=== PATIENT | female | born 1960 | race American Indian/Alaskan Native ===

== ENCOUNTER 2018-02-16 13:23 | Emergency (ER) | payer SELFPAY ==
[2018-02-16 13:29] VITALS: BP 167/94
[2018-02-16] MEDS ORDERED: MOTRIN PO ONE (14:16)
[2018-02-16] MEDS ORDERED: ZOFRAN ODT PO ONE (14:29)
--- NOTE | 2018-02-16 14:30 | Emergency Department Report ---
ED Head Trauma HPI - General Chief complaint: Head Injury Stated complaint: NECK/BACK PAIN Time Seen by Provider: 02/16/18 14:16 Source: patient Mode of arrival: Wheelchair Limitations: No Limitations - History of Present Illness Initial comments: This is a 58-year-old female nontoxic, well nourished in appearance, no acute signs of distress presents to the ED with c/o of acute headache and neck pain. Patient describes headache as diffuse with level of 3 out of 10. Patient denies thunderclap headache. Patient stated that she has nausea from pain. Patient denies any radiation of pain. Patient stated that she was at [employer] and trying to grab something from the top self and 2 boxes fell on her neck/ head area. Patient stated became dizzy but denies any loss of consciousness. Patient denies any visual changes. Patient denies worse headache. Patient denies any numbness, tingling, fever, chills, vomiting, chest pain, shortness of breath, stiff neck. Patient denies any radiation of pain. Patient stated allergies to PCN. PMH includes HTN. MD Complaint: head injury, other (neck pain) -: This afternoon Location: occipital Loss of Consciousness: no Previous [facility] Radiation: none Severity: mild Severity scale (0 -10): 8 Quality: aching Consistency: constant Provoking factors: none known Other Injuries: none Associated Symptoms: denies other symptoms. denies: confusion, amnesia, repetitive questioning, vision changes, nausea, vomiting, vertigo, syncope, numbness, weakness, tingling, neck pain - Related Data Home Medications Medication Instructions Recorded Confirmed Last Taken Hydrochlorothiazide [HCTZ] 25 mg PO QDAY 03/20/13 03/20/13 03/20/13 08:00 Previous Rx's Medication Instructions Recorded Last Taken Type Hydrocortisone/Pramoxine 10 gm RC BID 10 Days foam 03/25/13 Unknown Rx [Proctofoam-Hc 1%-1% Foam] Cyclobenzaprine [Flexeril] 10 mg PO QHS PRN #10 tablet 02/16/18 Unknown Rx Ibuprofen [Motrin] 600 mg PO Q8H PRN #30 tablet 02/16/18 Unknown Rx Allergies/Adverse reactions: Allergies Allergy/AdvReac Type Severity Reaction Status Date / Time Penicillins Allergy Anaphylaxis Verified 03/20/13 10:48 ED Review of Systems ROS: Stated complaint: NECK/BACK PAIN Other details as noted in HPI Constitutional: denies: chills, fever Eyes: denies: eye pain, eye discharge, vision change ENT: denies: ear pain, throat pain Respiratory: denies: cough, shortness of breath, wheezing Cardiovascular: denies: chest pain, palpitations Endocrine: no symptoms reported Gastrointestinal: denies: abdominal pain, nausea, diarrhea Genitourinary: denies: urgency, dysuria, discharge Musculoskeletal: back pain (neck). denies: joint swelling, arthralgia Skin: denies: rash, lesions Neurological: headache. denies: weakness, paresthesias Psychiatric: denies: anxiety, depression Hematological/Lymphatic: denies: easy bleeding, easy bruising ED Past Medical Hx - Past Medical History Hx Hypertension: Yes Additional medical history: carpal tunnel-no surgery, lymphoma ("its regressing out of my body now"--never received any treatment for the lymphoma. - Surgical History Past Surgical History?: Yes Additional Surgical History: - Social History Smoking Status: Never Smoker Substance Use Type: None - Medications Home Medications: Home Medications Medication Instructions Recorded Confirmed Last Taken Type Hydrochlorothiazide [HCTZ] 25 mg PO QDAY 03/20/13 03/20/13 03/20/13 08:00 History Hydrocortisone/Pramoxine 10 gm RC BID 10 Days foam 03/25/13 Unknown Rx [Proctofoam-Hc 1%-1% Foam] Cyclobenzaprine [Flexeril] 10 mg PO QHS PRN #10 tablet 02/16/18 Unknown Rx Ibuprofen [Motrin] 600 mg PO Q8H PRN #30 tablet 02/16/18 Unknown Rx ED Physical Exam - General Limitations: No Limitations General appearance: alert, in no apparent distress - Head Head exam: Present: atraumatic, normocephalic - Eye Eye exam: Present: normal appearance, PERRL, EOMI Pupils: Present: normal accommodation - ENT ENT exam: Present: normal exam, mucous membranes moist - Neck Neck exam: Present: normal inspection, full ROM. Absent: tenderness, meningismus, lymphadenopathy - Respiratory Respiratory exam: Present: normal lung sounds bilaterally. Absent: respiratory distress, wheezes, rales, rhonchi, stridor, chest wall tenderness, accessory muscle use, decreased breath sounds, prolonged expiratory - Cardiovascular Cardiovascular Exam: Present: regular rate, normal rhythm, normal heart sounds. Absent: bradycardia, tachycardia, irregular rhythm, systolic murmur, diastolic murmur, rubs, gallop - GI/Abdominal GI/Abdominal exam: Present: soft, normal bowel sounds. Absent: distended, tenderness, guarding, rebound, rigid, diminished bowel sounds - Rectal Rectal exam: Present: deferred - Extremities Exam Extremities exam: Present: normal inspection, full ROM, normal capillary refill. Absent: tenderness - Back Exam Back exam: Present: normal inspection, full ROM, paraspinal tenderness ( cervical paraspinal). Absent: tenderness, CVA tenderness (R), CVA tenderness (L ), muscle spasm, vertebral tenderness, rash noted - Expanded Back Exam Expanded Back exam: Absent: saddle anesthesia Back exam: Negative Straight Leg Raising: Left, Right - Neurological Exam Neurological exam: Present: alert, oriented X3, CN II-XII intact, normal gait - Expanded Neurological Exam Expanded Patient oriented to: Present: person, place, time Cranial nerves: EOM's Intact: Normal, Gag Reflex: Normal, Facial Sensation: Normal Cerebellar function: Finger to Nose: Normal Upper motor neuron: Pronator Drift: Normal, Sensory Extinction: Normal Sensory exam: Upper Extremity Light Touch: Normal, Upper Extremity Pin Prick: Normal, Upper Extremity Temperature: Normal, UE 2 Point Discrimination: Normal, Lower Extremity Light Touch: Normal, Lower Extremity Pin Prick: Normal, Lower Extremity Temperature: Normal, LE 2 Point Discrimination: Normal Motor strength exam: RUE: 5, LUE: 5, RLE: 5, LLE: 5 Best Eye Response (Welcome): (4) open spontaneously Best Motor Response (Lucian): (6) obeys commands Best Verbal Response (Lucian): (5) oriented Lucian Total: 15 - Psychiatric Psychiatric exam: Present: normal affect, normal mood - Skin Skin exam: Present: warm, dry, intact, normal color. Absent: rash ED Course Vital Signs 02/16/18 13:26 Temperature 98.5 F Pulse Rate 83 Respiratory 18 Rate Blood Pressure 167/94 O2 Sat by Pulse 100 Oximetry - Reevaluation(s) Reevaluation #1: 02/16/18 16:08 Patient is speaking in full sentences with no signs of distress noted. - Medical Decision Making This is a 58-year-old female that presents with head contusion and cervical neck strain. Patient is stable and was examined by me. Patient is neurologically stable. There is no stiff neck or neck pain. Vital signs are stable. Patient is afebrile. CT of head and cervical spine obtained and dictated by the radiologist. Patient is notified of the CT results with no questions noted by the patient. Patient received motrin which the patient stated that headache has subsided and resolved. Patient is discharged with Motrin and Flexeril. Patient was referred to Follow-up with a primary care/ neurologist doctor in 3-5 days or if symptoms worsen and continue return to emergency room as soon as possible. At time of discharge, the patient does not seem toxic or ill in appearance. No acute signs of distress noted. Patient agrees to discharge treatment plan of care. No further questions noted by the patient. - NEXUS Criteria Focal neurological deficit present: No Midline spinal tenderness present: No Altered level of consciousness: No Intoxication present: No Distracting injury present: No NEXUS results: C-Spine can be cleared clinically by these results. Imaging is not required. Critical care attestation.: If time is entered above; I have spent that time in minutes in the direct care of this critically ill patient, excluding procedure time. ED Disposition Clinical Impression: Cervical muscle strain Qualifiers: Encounter type: initial encounter Qualified Code(s): S16.1XXA - Strain of muscle, fascia and tendon at neck level, initial encounter Head contusion Qualifiers: Encounter type: initial encounter Contusion of head detail: other part of head Qualified Code(s): S00.83XA - Contusion of other part of head, initial encounter Disposition: DC-01 TO HOME OR SELFCARE Is pt being admited?: No Does the pt Need Aspirin: No Condition: Stable Instructions: Muscle Strain (ED), Acute Headache (ED), Contusion in Adults (ED) , Cyclobenzaprine (By mouth) Additional Instructions: Follow-up with a primary care doctor in 3-5 days or if symptoms worsen and continue return to emergency room as soon as possible. Take ibuprofen and Flexeril as prescribed. Do not operate heavy machinery while taking Flexeril due to sedation Prescriptions: Cyclobenzaprine [Flexeril] 10 mg PO QHS PRN #10 tablet PRN Reason: Muscle Spasm Ibuprofen [Motrin] 600 mg PO Q8H PRN #30 tablet PRN Reason: Pain Referrals: PRIMARY CARE, [Primary Care Provider] - 3-5 Days ANGIE OAKLEY MD [Staff Physician] - 3-5 Days [facility] [Outside] - 3-5 Days [facility] [Outside] - 3-5 Days Forms: Work/School Release Form(ED)
--- NOTE | 2018-02-16 15:24 | Cat Scan Report ---
FINAL REPORT EXAM: CT HEAD/BRAIN WO CON HISTORY: neck/head pain TECHNIQUE: CT of the head was performed without intravenous contrast. PRIORS: None. FINDINGS: The ventricles are normal in shape and position. The ventricles are nondilated. No intracranial hemorrhage, mass, mass effect, midline shift or evidence of acute ischemic infarct. The basilar cisterns are patent. Cavum septum pellucidum et vergae is seen. There is minimal mucosal thickening of the paranasal sinuses. The extracranial soft tissues demonstrate no abnormality. The calvarium is intact. The orbits are intact. The mastoid air cells are clear. Several probable intra parotid lymph nodes are seen. IMPRESSION: 1. No acute intracranial abnormality. 2. Minimal mucosal thickening of the paranasal sinuses is likely congestive or inflammatory.
--- NOTE | 2018-02-16 15:33 | Cat Scan Report ---
FINAL REPORT EXAM: CT CERVICAL SPINE WO CON HISTORY: neck/head pain TECHNIQUE: CT of the cervical spine was performed without intravenous contrast. Reconstructions were included in the coronal and sagittal planes. PRIORS: None. FINDINGS: No cervical spine fracture or subluxation. The prevertebral soft tissues are normal. There is disc space narrowing, anterior osteophyte formations and posterior disc osteophyte complexes at C4-5, C5-6 and C6-7. No spinal stenosis is seen. There is moderate to severe right and moderate left neural foraminal narrowing at C5-6. There is mild bilateral neural foraminal narrowing at C6-7. Numerous bilateral small cervical and supraclavicular lymph nodes are seen. One of the larger lymph nodes in the right supraclavicular region measures 13 x 7 millimeters. IMPRESSION: 1. No acute cervical spine abnormality. 2. Multilevel degenerative changes of the cervical spine with neural foraminal narrowing at C5-6 and C6-7. No spinal stenosis. 3. Numerous bilateral cervical and supraclavicular lymph nodes may be reactive versus neoplastic.
== END 2018-02-16 16:25 | disposition home or self-care (01) ==
LOC: ED 13:23
DX: S00.83XA Contusion of other part of head, initial encounter (principal); S16.1XXA Strain of muscle, fascia and tendon at neck level, initial encounter; I10 Essential (primary) hypertension; Z88.0 Allergy status to penicillin; W20.8XXA Other cause of strike by thrown, projected or falling object, initial encounter; Y93.89 Activity, other specified; Y92.59 Other trade areas as the place of occurrence of the external cause; Y99.8 Other external cause status
CPT/HCPCS: 70450; 72125; 99283; Q0162